=== PATIENT | female | born 1995 ===

== ENCOUNTER 2019-03-05 12:42 | Emergency (ER) | payer BC ==
[2019-03-05 13:01] VITALS: BP 128/76
--- NOTE | 2019-03-05 13:14 | UC ---
Respiratory Complaint HPI - HPI Summary HPI Summary: cough x 1 day cough is dry , worse with deep breathing , better with rest and fluid, chest tightness, wheezing , + nasal congestion , pnd no fever, no chills, no body aches - History of Current Complaint Chief Complaint: UCRespiratory Stated Complaint: COUGH,CONGESTION,ASTHMA Time Seen by Provider: 03/05/19 13:00 Hx Obtained From: Patient Hx Last Menstrual Period: 02/05/19 ?: No Onset/Duration: Gradual Onset, Lasting Days - 1, Still Present Timing: Constant Severity Initially: Moderate Severity Currently: Moderate Pain Intensity: 0 Character: Cough: Nonproductive Aggravating Factors: Exertion, Deep Breaths Alleviating Factors: Bronchodilator Associated Signs And Symptoms: Positive: Dyspnea, Wheezing, URI, Nasal Congestion. Negative: Fever, Chills, Pleuritic Chest Pain, Hemoptysis, Dizziness, Calf Pain, Calf Swelling, Hoarseness, Sinus Discomfort - Allergies/Home Medications Allergies/Adverse Reactions: Allergies Allergy/AdvReac Type Severity Reaction Status Date / Time No Known Allergies Allergy Verified 03/05/19 13:01 Home Medications: Home Medications Albuterol 2.5MG/3ML (0.083%)* [Ventolin 2.5 MG/3 ML NEB.WIL*] 2.5 mg INH Q4H [History Confirmed 03/05/19] Albuterol HFA INHALER* [Ventolin HFA Inhaler*] 1 puff INH Q4H PRN 03/05/19 [ History Confirmed 03/05/19] Dextromethorphan Polistirex [Delsym] 30 mg PO 03/05/19 [History] Montelukast Sodium TAB* [Singulair TAB*] 10 mg PO DAILY 03/05/19 [History Confirmed 03/05/19] PMH/Surg Hx/FS Hx/Imm Hx Respiratory History: Asthma - Surgical History Surgical History: Yes Surgery Procedure, Year, and Place: hip surgery - Family History Known Family History: Negative: Diabetes - Social History Alcohol Use: Rare Substance Use Type: None Smoking Status (MU): Never Smoked Tobacco Review of Systems All Other Systems Reviewed And Are Negative: Yes Constitutional: Positive: Negative Skin: Positive: Negative Eyes: Positive: Negative ENT: Positive: Nasal Discharge. Negative: Sore Throat, Ear Ache, Sinus Congestion, Sinus Pain/Tenderness Respiratory: Positive: Shortness Of Breath, Cough Cardiovascular: Positive: Negative Is Patient Immunocompromised?: No Physical Exam Triage Information Reviewed: Yes Appearance: Well-Appearing, No Pain Distress, Well-Nourished Vital Signs: Initial Vital Signs Temp 98.7 F 03/05/19 12:58 Pulse 118 03/05/19 12:58 Resp 18 03/05/19 12:58 BP 128/76 03/05/19 12:58 Pulse Ox 99 03/05/19 12:58 Vital Signs Reviewed: Yes Eye Exam: Normal Eyes: Positive: Conjunctiva Clear ENT Exam: Normal ENT: Positive: Normal ENT inspection, Hearing grossly normal, Pharynx normal, TMs normal. Negative: TM bulging, TM dull, TM red, Tonsillar swelling, Tonsillar exudate Neck: Positive: Supple, Nontender, No Lymphadenopathy Respiratory: Positive: Chest non-tender, Wheezing. Negative: No respiratory distress, No accessory muscle use, Respiratory distress, Decreased breath sounds , Accessory muscle use, Crackles Cardiovascular: Positive: Tachycardia Abdominal Exam: Normal Skin Exam: Normal Respiratory Course/Dx - Differential Dx/Diagnosis Provider Diagnosis: Asthmatic bronchitis Discharge - Sign-Out/Discharge Documenting (check all that apply): Patient Departure All imaging exams completed and their final reports reviewed: No Studies - Discharge Plan Condition: Stable Disposition: HOME Prescriptions: predniSONE [Prednisone 20 MG TAB] 20 mg PO BID AC #10 tablet Patient Education Materials: Acute Bronchitis (ED) Referrals: No Primary Care Phys,NOPCP [Primary Care Provider] - If Needed Additional Instructions: asthmatic bronchitis viral illness, no need for antibiotics - Billing Disposition and Condition Condition: STABLE Disposition: Home
== END 2019-03-05 13:14 | disposition home or self-care (01) ==
LOC: UCCORT 12:42
DX: J45.909 Unspecified asthma, uncomplicated (principal)
CPT/HCPCS: 99202; G0463